=== PATIENT | female | born 1995 | race American Indian/Alaskan Native ===

== ENCOUNTER 2017-10-13 19:45 | Emergency (ER) | payer MEDICAID ==
--- NOTE | 2017-10-13 21:08 | C.PDOC ---
History Of Present Illness 22 year old female presents to the ER with a complaint of fever and sore throat for the past 3 days. Patient was seen by [facility] yesterday for strep throat but states fever persists which prompted visit. Denies SOB or neck swelling. Time Seen by Provider: 10/13/17 20:23 Chief Complaint (Nursing): Fever History Per: Patient History/Exam Limitations: no limitations Onset/Duration Of Symptoms: Days Current Symptoms Are (Timing): Still Present Location Of Pain: None Sick Contacts (Context): None Associated Symptoms: Fever, Sore Throat. denies: Other (SOB, neck swelling) Ear Symptoms: Bilateral: None Recent travel outside of the [place]: No Past Medical History Reviewed: Historical Data, Nursing Documentation, Vital Signs Vital Signs: Last Vital Signs Temp 101 F H 10/13/17 21:02 Pulse 110 H 10/13/17 21:02 Resp 20 10/13/17 21:02 BP 110/70 10/13/17 21:02 Pulse Ox 99 10/14/17 00:03 - Medical History PMH: No Chronic Diseases Surgical History: No Surg Hx Family History: States: No Known Family Hx - Social History Hx Alcohol Use: No Hx Substance Use: No - Immunization History Hx Tetanus Toxoid Vaccination: No Hx Influenza Vaccination: Yes Hx Pneumococcal Vaccination: No Review Of Systems Constitutional: Positive for: Fever ENT: Positive for: Throat Pain Respiratory: Negative for: Cough, Shortness of Breath Musculoskeletal: Negative for: Other (Neck swelling) Physical Exam - Physical Exam Appears: Non-toxic Skin: Normal Color, Warm, Dry Head: Atraumatic, Normacephalic Eye(s): bilateral: Normal Inspection Ear(s): Bilateral: Normal Oral Mucosa: Moist Throat: Other (Enlarged erythematous tonsils, uvula midline) Neck: Normal, Supple, No Other (Swelling) Lymphatic: Adenopathy (Submandibular) Chest: Symmetrical, No Tenderness Cardiovascular: Rhythm Regular Respiratory: Normal Breath Sounds, No Rales, No Rhonchi, No Wheezing Neurological/Psych: Oriented x3, Normal Speech ED Course And Treatment O2 Sat by Pulse Oximetry: 99 (room air) Pulse Ox Interpretation: Normal Progress Note: Motrin administered upon arrival. On reevaluation, patient resting comfortably in the ER, drinking fluids in the ED, afebrile, vitals are stable. Will discharge home with instructions to continue amoxicillin and antipyretics for fever and follow up with PMD. Disposition Counseled Patient/Family Regarding: Diagnosis, Need For Followup, Rx Given - Disposition Referrals: [facility] [Outside] Disposition: HOME/ ROUTINE Disposition Time: 21:05 Condition: STABLE Additional Instructions: PLEASE FOLLOW UP WITH MEDICAL CLINIC ALTERNATE TYLENOL AND MOTRIN IF FEVER AND PAIN USE CHLORASEPTIC SPRAY RETURN TO ER IF WORSE Prescriptions: Ibuprofen [Motrin] 600 mg PO Q6H #30 tab Instructions: Strep Throat (DC) Forms: SupportPay (Georgian) - Clinical Impression Clinical Impression: Pharyngitis - PA / CITIZENSHIP INSTRUCTOR / Resident Statement MD/DO has reviewed & agrees with the documentation as recorded. - Scribe Statement The provider has reviewed the documentation as recorded by the Scribroverto Torres All medical record entries made by the Hennaibroverto were at my direction and personally dictated by me. I have reviewed the chart and agree that the record accurately reflects my personal performance of the history, physical exam, medical decision making, and the department course for this patient. I have also personally directed, reviewed, and agree with the discharge instructions and disposition.
[2017-10-13 21:09] VITALS: BP 110/70; PULSE 110; RESP 20; TEMP 101; O2SAT 99
== END 2017-10-13 21:22 | disposition home or self-care (01) ==
LOC: C.ER 19:45
DX: J02.9 Acute pharyngitis, unspecified (principal)